=== PATIENT | female | born 1975 | race Caucasian/White ===

== ENCOUNTER 2019-08-22 08:22 | Emergency (ER) | payer BC, SELFPAY ==
--- NOTE | ~2019-08-22 | CT_ITS ---
EXAMINATION: CT abdomen pelvis w con DATE: 08/22/2019 08:59 INDICATION: Right lower quadrant abdominal pain. TECHNIQUE: Computed tomography (CT) of the abdomen and pelvis was performed with 100 mL Omnipaque 350 intravenous contrast. Automated exposure control and iterative reconstruction technique were employe d. The dose-length product was 1451.39 mGy-cm. COMPARISON: None. FINDINGS: The visualized portions of the lung bases demonstrate mild atelectasis. No pleural effusion . The heart size is normal. No pericardial effusion. There is an 8 mm cyst in the liver. The gallblad dennise, spleen, pancreas, adrenal glands, and left kidney are normal. There is a 3 mm stone in right kid luis. There are no dilated loops of bowel. The appendix is normal. There is a small sliding hiatal her arvin. There are no pathologically enlarged lymph nodes. There is no free intraperitoneal fluid. There is interbody fusion at T11-T12. There is diffuse sclerosis of L3 vertebral body. IMPRESSION: 1. 3 mm nonobstructing right kidney stone. 2. Small sliding hiatal hernia. 3. Sclerosis of L3 vertebral body, which may be benign or metastatic disease. Bone scan is recommende d. Reviewed, dictated and finalized at [facility]. [employer] IMPRESSION: 1. 3 mm nonobstructing right kidney stone. 2. Small sliding hiatal hernia. 3. Sclerosis of L3 vertebral body, which may be benign or metastatic disease. B one scan is recommended.
[2019-08-22 08:29] VITALS: BP 147/89; PULSE 120; RESP 17; TEMP 37; O2SAT 97
--- NOTE | 2019-08-22 08:33 | ED.ABDPAIN ---
HPI - Abdominal Pain General Chief Complaint: Abdominal Pain Stated Complaint: ABD PAIN Time Seen by Provider: 08/22/19 08:24 Source: patient and RN notes reviewed Mode of arrival: ambulatory Limitations: no limitations History of Present Illness HPI narrative: Pt is a 44 y/o female who presents to the ED with c/o RLQ pain starting around 2 AM this morning. She notes that her recently finished recovering from the flu. Pt states that she has had a cough and other cold symptoms for the past several days, for which she has been taking cold medicine with acetaminophen. She notes that she developed pain in her rt lower ABD early this morning. Pt states that her pain doesn't radiate anywhere. She currently reports a fever and diarrhea, but denies any vomiting, dysuria, or hematuria. Pt states that she has no Hx of ABD surgery. MD elicited complaint: abdominal pain Onset (ago): hour(s) (6.5) Location: RLQ Radiation: none Context: confirms sick contacts Associated symptoms: diarrhea, fever and other (cough) Treatments prior to arrival: other ( cold medicine ) Related Data Allergies Allergy/AdvReac Type Severity Reaction Status Date / Time aspirin Allergy Unknown Unknown Verified 08/22/19 08:37 Penicillins Allergy Unknown Unknown Verified 08/22/19 08:37 Review of Systems Review of Systems: Narrative: CONSTITUTIONAL: Reports fever. Denies chills or sweats. CARDIOVASCULAR: Denies chest pain, palpitations, or edema. RESPIRATORY: Denies dyspnea. Reports cough. GASTROINTESTINAL: Reports RLQ pain and diarrhea. Denies nausea or vomiting. GENITOURINARY: Denies dysuria or hematuria. All systems reviewed & are unremarkable except as noted in HPI and below PMFSH Past Medical History Medical History (Updated 08/22/19 @ 10:43 by Tracy Washington MD) Kidney stones Surgical History Surgical History (Updated 08/22/19 @ 09:10 by Keith Nagy) Hx of nephrolithotomy with removal of calculi Hx of tonsillectomy Family History Family History (Updated 01/18/16 @ 23:21 by DOCTOR UNKNOWN) Mother Hypertension Father Patient's father is in good health Sibling Patient's sister is in good health Patient's brother is in good health Social History Social History Smoking status: Never smoker Second hand tobacco smoke exposure: No Alcohol intake: never Gender identity (if verbalized by the patient): Female Exam Narrative: Exam Narrative: GENERAL: Well-appearing, well-nourished, and in no acute distress. HEAD: Normocephalic, atraumatic. EYES: PERRLA and EOMI. ENT: Nares clear, no rhinorrhea or epistaxis. Mucous membranes moist. NECK: Supple. CHEST: Clear to auscultation. No respiratory distress. HEART: Tachycardic and regular rhythm. No murmur heard. Normal peripheral pulses. ABDOMEN: Soft, nondistended, normal active bowel sounds. RLQ, RUQ, and suprapubic tenderness. EXTREMITIES: Normal range of motion. No edema. SKIN: Warm, dry, no rash. NEURO: No focal deficits. Alert and oriented. Course Course Emergency Course: Patient presented for evaluation of abdominal pain, patient tachycardic at the time of arrival. She is afebrile. She has right upper quadrant, right lower quadrant and suprapubic pain. Patient has no leukocytosis. No hypotension. She has a urinary tract infection. CT scan shows a 3 mm nonobstructing right kidney stone, but this would not be consistent with a truly infected stone as the stone has not migrated out of the kidney. Regardless, patient was given IV antibiotics in the ER, tolerated these well, had no adverse reaction, no vomiting. At the time of reassessment, pain was controlled. Tachycardia resolved, no hypotension. She will be discharged home on Keflex, advised to follow-up with her primary care provider, also given urology follow-up for when the stone passes. Vital Signs Vital signs: Vital Signs Temperature 37.0 C 08/22/19 08:29 Pulse Rate
[2019-08-22] MEDS: MORPHINE SULFATE 4 MG/ML INJ IV PUSH (08:45)
[2019-08-22] MEDS: FAMOTIDINE 20 MG/2 ML VIAL IV PUSH (08:45)
[2019-08-22] MEDS: ONDANSETRON INJ 4 MG/2 ML VIAL IV PUSH (08:45)
[2019-08-22] MEDS: SODIUM CHLORIDE 0.9% IV 1,000 ML 999 ML IV CONT (08:46)
[2019-08-22 08:54] LABS: Basophils Percent Auto 0.5 % (0.2-1.2); Eosinophils Percent Auto 0.2 % (0-4.4); Hematocrit 45.2 % (37.0-47.0); Hemoglobin 14.9 g/dL (12.0-15.0); Immature Granulocyte Absolute 0.02 K/mm3 (0.00-0.031); Immature Granulocyte Percent A 0.3 % (0-0.5); Lymphocytes Absolute Auto 2.14 K/mm3 (0.9-3.2); Lymphocytes Percent Auto 32.9 % (18.3-44.2); Mean Corpuscular Hemoglobin 27.9 pg (26-34); Mean Corpuscular Volume 84.5 fl (80-100); Mean Platelet Volume 11.1 fl (7.4-10.4); Monocytes Percent Auto 15.8 % (2.6-8.5); Neutrophils Absolute Auto 3.3 K/mm3 (1.3-6.7); Neutrophils Percent Auto 50.3 % (45.5-73.1); Platelet Count Result 214 k/mm3 (150-375); Red Blood Count 5.35 M/mm3 (4.2-5.4); Red Cell Distribution Width 13.4 % (11.5-14.5); White Blood Count 6.5 K/mm3 (4.5-10.0)
[2019-08-22 08:54] LABS: Blood Urea Nitrogen 10 mg/dL (8-26); Estimated CRCL calculation 88 ml/min; Estimated Glomerular Filt Rate > 60
[2019-08-22 09:03] LABS: Add Urine Microscopic? YES; Appearance Urine Cloudy (Clear); Bacteria Urine Trace /hpf; Bilirubin Urine Negative (Negative); Blood Urine 2+ (Negative); Color Urine Yellow (Yellow); Glucose Urine UA Negative (Negative); Ketones Urine 1+ mg/dL (Negative); Leukocyte Esterase Ur 3+ LEU/UL (Negative); Mucus Urine Heavy /lpf; Nitrate Urine Negative (Negative); Protein Urine 1+ mg/dL (Negative); Specific Grav Ur 1.021 (1.001-1.035); Squamous Epithelial Cell Urine Many /hpf (Few); Urobilinogen Urine Negative mg/dL (<2.0); WBC Urine 31-50 /hpf
[2019-08-22 09:06] LABS: Alanine Aminotransferase 43 U/L (4-35); Albumin Level 4.3 g/dL (3.5-5.1); Alkaline Phosphatase 95 U/L (38-126); Aspartate Amino Transferase 43 U/L (14-36); Bilirubin,Total 0.6 mg/dL (0.2-1.3); Blood Urea Nitrogen 10 mg/dL (7-17); Calcium 8.5 mg/dL (8.4-10.2); Carbon Dioxide 20 mmol/L (22-30); Chloride 101 mmol/L (98-107); Estimated CRCL calculation 88 ml/min; Estimated Glomerular Filt Rate > 60; Glucose 123 mg/dL (65-105); Lipase 182 U/L (23-300); Potassium 3.7 mmol/L (3.4-5.0); Sodium 135 mmol/L (137-145)
[2019-08-22 09:57] VITALS: BP 121/57; PULSE 82; RESP 14; O2SAT 100
[2019-08-22 10:53] VITALS: BP 102/56; PULSE 85; RESP 15; O2SAT 97
== END 2019-08-22 10:55 | disposition home or self-care (01) ==
PROVIDERS: Emergency Provider Emergency Medicine; PCP Internal Medicine
DX: N30.00 Acute cystitis without hematuria (principal); R74.0 Nonspecific elevation of levels of transaminase and lactic acid dehydrogenase [LDH]; Z87.442 Personal history of urinary calculi; N20.0 Calculus of kidney; K44.9 Diaphragmatic hernia without obstruction or gangrene; M89.9 Disorder of bone, unspecified
CPT/HCPCS: 36415; 74177; 80053; 81001; 81025; 83690; 85025; 87086; 87088; 87804; 96365; 96367; 96375; 99284; J0131; J0696; J2270; J2405; J7030; Q9967

== ENCOUNTER 2023-07-03 06:44 | Emergency (ER) | payer BC, SELFPAY ==
--- NOTE | ~2023-07-03 | CT_ITS ---
EXAMINATION: CT abdomen pelvis wo con DATE: 07/03/2023 08:20 INDICATION: Right side abdominal pain radiating to back TECHNIQUE: Computed tomography (CT) of the abdomen and pelvis was performed without intravenous contr ast. Automated exposure control and iterative reconstruction technique were employed. Exam dose: 390 .51 mGy-cm total exam DLP. COMPARISON: 08/22/2019 CT abdomen pelvis FINDINGS: There is mild chronic discoid scarring of the middle lobe. The lung bases are clear of inf iltrate or consolidation. Normal heart size. No pericardial or pleural effusion. Approximately 1.3 cm lateral segment left hepatic cyst. No other hepatic, splenic, pancreatic, adren al or renal space occupying mass lesion is detected. 4 mm lower pole right renal calculus. No other urinary tract calculus or hydroureteronephrosis. The urinary bladder, uterus and adnexal areas are unremarkable. There is a small sliding hiatal hernia. No evidence of appendicitis. No bowel obstruction or bowel wall thickening, pneumatosis or intraper itoneal free air. Normal caliber of the abdominal aorta. No intraperitoneal or retroperitoneal or pelvic mass lesion o r lymphadenopathy or ascites. Small fat containing umbilical hernia. There is abnormal sclerosis of L3 vertebral body; differential diagnosis includes osteosclerotic meta static disease, Paget's disease. Consider radionuclide bone scan. Fusion (incomplete segmentation) at T11-12. IMPRESSION: 4 mm nonobstructing lower pole right renal calculus 1.3 cm lateral segment left hepatic cyst Small sliding hiatal hernia No evidence of appendicitis Osteosclerotic L3 vertebral body, suspicious for osteosclerotic metastatic disease Reviewed, dictated and finalized at [facility]. Reviewed, dictated and finalized at [facility]. [employer] IMPRESSION: 4 mm nonobstructing lower pole right renal calculus 1.3 cm lateral segment left hepatic cyst Small sliding hiatal hernia No evidence of appendicitis Osteosclerotic L3 vertebral body, suspicious for osteosclerotic metastatic dise ase
[2023-07-03 06:56] VITALS: BP 116/85; PULSE 65; RESP 14; TEMP 36.4; O2SAT 96
[2023-07-03 07:43] VITALS: BP 128/86; PULSE 88; RESP 16; O2SAT 98
[2023-07-03 07:45] LABS: Basophils Percent Auto 0.4 % (0.2-1.2); Eosinophils Absolute Auto 0.1 K/mm3 (0-0.3); Eosinophils Percent Auto 0.9 % (0-4.4); Hematocrit 44.1 % (37.0-47.0); Hemoglobin 14.2 g/dL (12.0-15.0); Immature Granulocyte Absolute 0.03 K/mm3 (0.00-0.031); Immature Granulocyte Percent A 0.4 % (0-0.5); Lymphocytes Absolute Auto 1.33 K/mm3 (0.9-3.2); Lymphocytes Percent Auto 17.8 % (18.3-44.2); Mean Corpuscular HGB Conc 32.2 g/dl (32-36); Mean Corpuscular Hemoglobin 28.8 pg (26-34); Mean Corpuscular Volume 89.5 fl (80-100); Mean Platelet Volume 10.2 fl (7.4-10.4); Monocytes Absolute Auto 0.5 K/mm3 (0.1-0.6); Monocytes Percent Auto 6.7 % (2.6-8.5); Neutrophils Absolute Auto 5.5 K/mm3 (1.3-6.7); Neutrophils Percent Auto 73.8 % (45.5-73.1); Platelet Count Result 267 k/mm3 (150-375); Red Blood Count 4.93 M/mm3 (4.2-5.4); Red Cell Distribution Width 13.8 % (11.5-14.5); White Blood Count 7.5 K/mm3 (4.5-10.0)
[2023-07-03 07:57] LABS: Alanine Aminotransferase 19 U/L (6-35); Albumin Level 4.1 g/dL (3.5-5.1); Alkaline Phosphatase 80 U/L (38-126); Anion Gap 7 mmol/L (8-16); Aspartate Amino Transferase 26 U/L (14-36); Bilirubin,Total 1.3 mg/dL (0.2-1.3); Blood Urea Nitrogen 13 mg/dL (7-17); Calcium 8.5 mg/dL (8.4-10.2); Carbon Dioxide 27 mmol/L (22-30); Chloride 105 mmol/L (98-107); Estimated CRCL calculation 91 ml/min; Estimated Glomerular Filt Rate > 60; Glucose 117 mg/dL (65-110); Potassium 3.5 mmol/L (3.4-5.0); Sodium 139 mmol/L (137-145)
--- NOTE | 2023-07-03 08:11 | ED.ABDPAIN ---
HPI - Abdominal Pain General Chief Complaint: Abdominal Pain Stated Complaint: R lower abd and flank pain Time Seen by Provider: 07/03/23 08:02 Source: patient Mode of arrival: ambulatory History of Present Illness HPI narrative: 48-year-old female presenting with right lower quadrant right flank pain starting around 6:00 a.m. this morning. Has a history of kidney stones years ago but nothing recently. Also felt nauseous and vomited once which is nonbloody nonbilious. No changes in bowel habits or urinary habits. All other symptoms and complaints are negative as per ROS. Related Data Allergies Allergy/AdvReac Type Severity Reaction Status Date / Time aspirin Allergy Unknown Unknown Verified 07/03/23 07:53 Penicillins Allergy Unknown Unknown Verified 07/03/23 07:53 Review of Systems Review of Systems: All systems reviewed & are unremarkable except as noted in HPI and below (HPI) [facility] Past Medical History Medical History Kidney stones Surgical History Surgical History Hx of nephrolithotomy with removal of calculi Hx of tonsillectomy Family History Family History Mother Hypertension Father Patient's father is in good health Sibling Patient's sister is in good health Patient's brother is in good health Social History Social History Smoking status: Never smoker Second hand tobacco smoke exposure: No Alcohol intake: never Gender identity (if verbalized by the patient): Female Exam Narrative: Constitutional: Generally well appearing, no acute distress Head: Atraumatic, no deformities. Eyes: Pupils equal, round, and reactive to light. Neck: Supple, no tracheal deviation, no JVD. ENMT: Mucous membranes moist Cardiovascular: S1, S2 auscultated. No murmurs, rubs, or gallops. No S3/S4. Normal Distal pulses. No peripheral edema. Respiratory: Lung sounds equal. No wheezes, rales, or rhonchi. Gastrointestinal: Abdomen was soft. Mildly tender in the right lower quadrant. No CVA tenderness. Non-distended. No rebound or guarding. Genitourinary: Deferred Musculoskeletal: Normal muscle tone and bulk. No obvious deformities or tenderness over extremities. Skin: No rashes. Neurological: Strength 5/5 in extremities. Cranial nerves I-XII grossly intact. Distal sensation intact. Mental Status: Awake, alert and oriented x3. Follows commands Course Vital Signs Vital signs: Vital Signs Temperature 36.4 C 07/03/23 06:56 Pulse Rate 65 07/03/23 06:56 Respiratory Rate 14 07/03/23 06:56 Blood Pressure 116/85 07/03/23 06:56 Pulse Oximetry 96 07/03/23 06:56 Oxygen Delivery Room Air 07/03/23 06:56 Temperature 36.4 C 07/03/23 06:56 Pulse Rate 88 07/03/23 07:43 Respiratory Rate 16 07/03/23 07:43 Blood Pressure 128/86 07/03/23 07:43 Pulse Oximetry 98 07/03/23 07:43 Oxygen Delivery Room Air 07/03/23 06:56 MDM - Abdominal Pain MDM Narrative Medical decision making narrative: 48-year-old female presenting with right lower quadrant and right flank pain ongoing for the last 2 hours pain symptoms normal vital signs. Generally well appearing. Vomited once at home number no bruits. Concern for possible UTI, pyelonephritis, appendicitis, cholecystitis. Obtaining CT abdomen pelvis, abdominal labs. Given IV fluids, Zofran, morphine. CT shows renal calculus, no other abnormalities. Urinalysis does show UTI. Concern for likely pyelonephritis given the right-sided pain as well as evidence of UTI. Will start her on Bactrim. Pt feeling improved and would like to go home at this point. Return precautions were given to the patient include any new or worsening symptoms or development of and not limited to any chest pain, shortness of breath, lightheadedness, a
[2023-07-03 08:15] LABS: Bacteria Urine 4+ /hpf; Need Manual Microscopic Reviewed; RBC Urine >100 /hpf (0-2); Squamous Epithelial Cell Urine Moderate /hpf (Few); WBC Urine >100 /hpf
[2023-07-03 08:17] LABS: Appearance Urine Cloudy (Clear); Color Urine Yellow (Yellow); pH Urine 7.5 (5.0-9.0)
[2023-07-03 08:18] LABS: Add Urine Microscopic? YES; Bilirubin Urine Negative (Negative); Blood Urine 3+ (Negative); Glucose Urine UA Negative (Negative); Ketones Urine 1+ mg/dL (Negative); Leukocyte Esterase Ur 2+ LEU/UL (Negative); Nitrate Urine Negative (Negative); Protein Urine 1+ mg/dL (Negative); Specific Grav Ur 1.025 (1.001-1.035)
[2023-07-03] MEDS: MORPHINE SULFATE (*CRX) 4 MG/ML INJ IV PUSH (08:31)
[2023-07-03] MEDS: ONDANSETRON INJ 4 MG/2 ML VIAL IV PUSH (08:31)
== END 2023-07-03 09:04 | disposition home or self-care (01) ==
PROVIDERS: Emergency Provider Emergency Medicine; PCP Internal Medicine
DX: N12 Tubulo-interstitial nephritis, not specified as acute or chronic (principal)
CPT/HCPCS: 36415; 74176; 80053; 81001; 85025; 87086; 87088; 96374; 96375; 99284; J2270; J2405